=== PATIENT | female | born 1955 | race Caucasian/White ===

== ENCOUNTER 2019-07-11 14:49 | Inpatient (IN) | payer OTHER ==
[~2019-07-11] VITALS: Ht 157.5 cm; Wt 66.5 kg
[2019-07-11 14:49] VITALS: BP 138/72
[~2019-07-11 14:49] MED LIST: ACETAMINOPHEN325 M1 PO; ADULT LOW DOSE81 MG; AMLODIPINE BESY10 MG PO; ANTIVERT25 MG PO; ATIVAN1 MG PO; ATORVASTATIN CA40 MG PO; AZITHROMYCIN 2250 MG PO; BUSPIRONE HCL10 MG PO; CELEBREX 200 M200 M1 PO; CELEXA20 MG PO; CLONAZEPAM; CLONAZEPAM 0.50.5 M1 PO; CLONAZEPAM PO; CLONIDINE0.1 PO; COLACE100 MG; CRESTOR20 MG PO; CYMBALTA30 MG PO; DESYREL50 MG PO; DOCUSATE SODIU100 MG PO; ESCITALOPRAM OX20 MG PO; FIORICET 50-321 EACH PO; FLEXERIL PO; GRALISE600 MG PO; HYDROXYZINE HCL25 M1 PO; LEXAPRO; LIDODERM 5%1 PATC1 TOP; LISINOPRIL10 MG; LISINOPRIL20 MG PO; LISINOPRIL40 MG PO; LORTAB 5 MG/5001 TA1 PO; MEDROLDOSEPACK PO; NEURONTIN 300300 M1 PO; NEURONTIN600 MG PO; NITROGLYCERIN0.3 MG; NITROSTAT0.3 MG SUBLING; NORCO 5-325 TA1 EACH PO; NORCO 7.5-3251 EACH PO; OLANZAPINE10 MG PO; ONDANSETRON HCL4 M2 PO; PERCOCET 5-3251 EACH PO; PHENERGAN 25 MG25 M1 PO; PLAVIX 75 MG TA75 MG PO; PREDNISONE 10 M10 M1 PO; PREDNISONE 20 M20 M1 PO; PREDNISONE 20 M20 MG PO; PRINIVIL20 MG PO; PROAIR HFA8.5 GM; PROAIR HFA8.5 GM INH; REMERON15 MG PO; RISPERDAL 1 MG T1 MG; RISPERDAL M-TAB1 MG PO; SEROQUEL XR 20200 MG PO; SKELAXIN 800 M800 M1 PO; SPIRIVA; SPIRIVA INH; TOPROL XL100 MG PO; TOPROL XL50 MG PO; TOVIAZ8 MG PO; TRICOR145 MG PO; TRILEPTAL 300300 MG PO; ULTRAM 50MG TAB50 MG PO; VESICARE PO; VISTARIL 25 MG25 M1 GT; VITAMIN D 5050000 I1 PO; VITAMIN D1000 UNI1 PO; WELLBUTRIN SR150 MG PO; WELLBUTRIN XL300 M1; XANAX 0.5 MG0.5 MG PO; ZOFRAN ODT4 MG PO; ZOFRAN4 MG PO; ZPAK PO; starlix
[2019-07-11 15:40] LABS: ABSOLUTE NEUTROPHILS 4.8 thou/uL (1.4-8.2); BASOPHILS 0.9 % (0.0-2.0); EOSINOPHILS 0.3 % (0.0-3.0); HEMATOCRIT 46.3 % (37.0-47.0); HEMOGLOBIN 15.9 gm/dL (12.0-15.0); LYMPHOCYTES 29.9 % (24.0-44.0); MCH 32.9 pg (26.0-34.0); MCHC 34.3 g/dL (28.0-37.0); MCV 95.9 fL (80.0-100.0); MONOCYTES 7.5 % (1.0-8.0); PLATELET COUNT 226 thou/uL (150-400); POLYS 61.4 % (36.0-66.0); RBC 4.83 mil/uL (4.20-5.00); RDW 14.9 % (10.5-14.5); WBC 7.9 thou/uL (4.0-11.0)
[2019-07-11 15:48] LABS: ANION GAP 7 mmol/L (7-16); BUN 9 mg/dL (7-18); CALCIUM 9.1 mg/dL (8.5-10.1); CHLORIDE 94 mmol/L (98-107); CO2 28 mmol/L (21-32); GLUCOSE 64 mg/dL (74-106); SODIUM 129 mmol/L (136-145)
[2019-07-11 15:52] LABS: SGOT 12 U/L (15-37); SGPT 6 U/L (30-65); TOTAL BILIRUBIN 0.3 mg/dL (<0.1-1.0); TOTAL PROTEIN 6.4 g/dL (6.4-8.2)
[2019-07-11 15:52] LABS: URINE BILIRUBIN NEGATIVE (Negative); URINE BLOOD NEGATIVE (Negative); URINE CLARITY CLEAR; URINE COLOR YELLOW; URINE GLUCOSE-RANDOM* NEGATIVE (Negative); URINE KETONES NEGATIVE (Negative); URINE LEUKOCYTES NEGATIVE (Negative); URINE NITRITE NEGATIVE (Negative); URINE PROTEIN (DIPSTICK) NEGATIVE (Negative); URINE SPECIFIC GRAVITY <= 1.005 (1.005-1.035)
[2019-07-11 16:00] LABS: AMP/METHAMP Negative (Negative); BARBITURATES Negative (Negative); BENZODIAZEPINES Negative (Negative); COCAINE Negative (Negative); METHADONE Negative (Negative); OPIATES Negative (Negative); PCP Negative (Negative)
[2019-07-11 18:04] VITALS: BP 117/64
--- NOTE | 2019-07-11 18:04 | NUR ---
ATTEMPTED TO CALL REPORT TO RECEIVING RN. WAS TOLD RECEIVING RN WILL CALL BACK AT EARLIEST CONVEINENCE.
[2019-07-11 18:21] VITALS: BP 130/82
[2019-07-11 23:03] VITALS: BP 122/72
--- NOTE | 2019-07-12 00:12 | NUR ---
The pt. arrived to the unit at 1730 after being in the ER, for evaluation of depression. She reports stressors in life, she had a recent move and ill whom she lives with. She lives in [facility] in [place], said her two sons were "kicked out" and her daughter lives in [facility]. She uses [facility] in [place], . A call was made to [facility] at 1930 when received report from day nurse to get a current medication list but they were closed. Dr. Piña was called for admission orders and ordered Remeron 15 mg. po for HS. Her VS were of=275/72, p=60, r=17, T98.4 F, oxy 92% room air. She denied any thoughts to harmself when assessed and said she has had alot of stressors with ill and feels safe here with no thoughts of hurting herself. She was A/O x4, no c.o. pain voiced, bowel movement 10-18-19. She has upper dentures only, said she can chew regular meats cut up. She requested to have available breathing treatments as needed and those ordered. She made a phone call to her , watched some television, had a flat affect, made her needs known, and ambulated with a roller walker on the day mejia, says she sometimes needs one but not all the time. She is sleeping soundly tonite.
[2019-07-12 09:12] VITALS: BP 134/80
[2019-07-12 10:50] LABS: CALCIUM 9.3 mg/dL (8.5-10.1); POTASSIUM 4.1 mmol/L (3.5-5.1)
[2019-07-12 11:01] VITALS: BP 134/80
--- NOTE | 2019-07-12 11:30 | NUR ---
0705 Report received from overnight shift, patient ate breakfast took meds that was ordered. I had to call outside pharmacy [facility] for medication list. List given to medical doctor to order additional medication. Patient is a little out of breath ask for inhaler. Patient is a smoker and lives in a hotel with who is sick. Patient calm cooperative, Flu Vaccine given.
--- NOTE | 2019-07-12 16:09 | NUR ---
SW met with pt for 1:1 and she described a loving and supportive marriage with her of 30 plus years. they are both disabled and have lived in the [facility] for 4 years. She is currently receiving psych services with [facility] ( formerly [facility]) . She would like to start therapy and get some case management services to help with housing and transportation. She is seeing her psychiatrist in July. Rosaura will provide a cab voucher to get her home.
[2019-07-12 20:00] VITALS: BP 129/89
--- NOTE | 2019-07-13 00:42 | NUR ---
PATIENT WAS UP IN DINING ROOM TONIGHT WATCHING TV. SHE HAD HS SNACK AND TOOK HER HS PILLS WITHOUT DIFFICULTY. PATIENT HAS BEEN CALM. NO SI/HI. DR AMAYA CAME UP AND WENT OVER PATIENT'S MED LIST FROM HER PHARMACY. PATIENT DID NOT WANT ALBUTEROL TX'S D/T SHE GETS THE SHAKES. PATIENT WAS ALSO ON 2 OR 3 INHALERS THAT WE DO NOT CARRY IN THAT FORM. PATIENT DID AGREE TO RT'S QID WHICH INCLUDE ALL THE SAME MEDICINES SHE HAD RECEIVED FROM HER INHALERS. PATIENT HAD EXPIRATORY WHEEZES AND THIS CLEARED WITH RT. 02 SAT 95%. PATIENT HAS BEEN COOPERATIVE AND DENIES PAIN. PATIENT SLEEPING IN BED AT THIS TIME. SHE WAS JUST UP TO BATHROOM TO VOID. BED ALARM ON AND BED IN LOW POSITION.
[2019-07-13 06:37] LABS: CREATININE 1.1 mg/dL (0.6-1.0); POTASSIUM 4.3 mmol/L (3.5-5.1)
[2019-07-13 10:39] VITALS: BP 114/81
--- NOTE | 2019-07-13 10:47 | NUR ---
0701 Report received from overnight shift, Patient ate breakfast and took medication without incidence. Patient received a breathing treatment from respiratory department. She states it helped her tremendously. Patient is friendly with peers. Patient cooperative and calm.
[2019-07-13 12:50] VITALS: BP 144/81
[2019-07-13 19:55] VITALS: BP 101/67
[2019-07-14 00:50] VITALS: BP 101/67
--- NOTE | 2019-07-14 08:54 | EKG ---
[place] [address] [facility] [place] [address] ELECTROCARDIOGRAM REPORT Name: LATOYA PERALTA Room #: 520A-A ADM IN M.R.#: [id number] Admission: 07/11/19 Attend Phys: Isak Candelario DO Discharge: Date of : 57 Report #: [id number] THIS REPORT FOR: //name// [facility] ED Test Date: 2019-07-11 Test Time: 15:08:58 Pat Name: LATOYA PERALTA Department: Room: 520A Gender: F Telecommunications Officer: GLORIA : 1955 Requested By: Ema Moffett Order Number: [id number] MD: Hermelindo Harrison Measurements Intervals [place] Rate: 55 P: 26 MI: 147 QRS: 121 QRSD: 87 T: 41 QT: 447 QTc: 428 Interpretive Statements Sinus rhythm Left posterior fascicular block Low voltage, extremity leads Abnormal R-wave progression, late transition Compared to ECG 09/13/2015 21:37:32 T-wave abnormality no longer present Electronically Signed On 07-14-2019 8:54:39 CDT by Hermelindo Harrison [email or web address] <ELECTRONICALLY SIGNED> By: Hermelindo Harrison MD, FAC 07/14/19 0854 1508 1508 Hermelindo Harrison MD, [facility] /EPI
--- NOTE | 2019-07-14 09:17 | EKG ---
[place] [address] [employer] [place] [address] ELECTROCARDIOGRAM REPORT Name: LATOYA PERALTA Room #: 520A-A ADM IN M.R.#: [id number] Admission: 07/11/19 Attend Phys: Isak Candelario DO Discharge: Date of : 57 Report #: [id number] THIS REPORT FOR: //name// [facility] Test Date: 2019-07-13 Test Time: 09:03:09 Pat Name: LATOYA PERALTA Department: Room: 520A A Gender: F Storage Administrator: Kim ESCALONA : 1955 Requested By: Sobeida Durant Order Number: [id number] MD: Hermelindo Harrison Measurements Intervals [place] Rate: 127 P: ID: QRS: 127 QRSD: 98 T: 59 QT: 385 QTc: 560 Interpretive Statements Marked baseline artifact Sinus rhythm Abnormal R-wave progression, late transition Compared to ECG 09/13/2015 21:37:32 No gross differences Electronically Signed On 07-14-2019 9:17:21 CDT by Hermelindo Harrison [email or web address] <ELECTRONICALLY SIGNED> By: Hermelindo Harrison MD, [facility] 07/14/19916 2 2 Hermelindo Harrison MD, [facility] /EPI
[2019-07-14 09:57] VITALS: BP 122/68
--- NOTE | 2019-07-14 20:06 | NUR ---
RECEIVED REPORT FROM DAY SHIFT NURSE AND ASSUMED CARE @ 19:15 ON 07/14/19. SITTING ON COUCH IN DAY ROOM WATCHING TV. COOPERATIVE WITH ASSESSMENT. A&OX4. DENIED SI AND HI. DENIES AUDIO HALLUCINATION AND VISUAL HALLUCINATIONS. REPORTS HAS BACK PAIN AND WISHES TO HAVE PRN PAIN MEDS.
[2019-07-14 20:14] VITALS: BP 115/67
[2019-07-14 23:27] VITALS: BP 115/67
[2019-07-15 09:08] VITALS: BP 114/77
[2019-07-15 10:49] LABS: CALCIUM 9.1 mg/dL (8.5-10.1); POTASSIUM 4.4 mmol/L (3.5-5.1)
[2019-07-15 14:54] VITALS: BP 114/77
--- NOTE | 2019-07-15 15:18 | NUR ---
ASSUMED CARE THIS MORNING AT 0700. PT. UP C/O SHORTNESS OF AIR. LUNGS HAVE CRACKLES IN THE BASES. SHE STATES SHE DOES NOT FELL WELL TODAY. DR. AMAYA HERE AND SPOKE WITH PT. RT. CAME TO DO TREATMENT. HER O2 WAS 89 PRE TREATMENT LAND [address] NOYOLA NOTIFIED OF PT. NOT FEELING WELL AND LUNGS HAVING CRACKLES. CXR ORDERED. THIS SHOWED SOME INFILTRATES AND A QUESTIONABLE AREA. A CT SCAN WAS THEN ORDERED. PT. COMPLIANT WITH BOTH. SHE ATE MEALS ON THE UNIT. SHE IS ALERT AND ORIENTED TIMES 4. WAS ON THE UNIT FOR GROUPS AND PARTICIPATED. NO S/S SI/HI OR AVH NOTED THIS SHIFT. DR. AMAYA CAME BACK TO THE UNIT AND CHANGED SOME ORDERS ON THE PT. THIS AFTERNOON.
[2019-07-15 16:30] LABS: BE(vivo) 2.8 mmol/L (-2 to +3); HCO3 29.8 mmol/L (22.0-26.0); PO2 45.6 mmHg (80.0-100.0); pH 7.351 (7.360-7.450); sO2 78.7 % (92.0-98.0)
--- NOTE | 2019-07-15 20:23 | NUR ---
TRANSFERRED TO 3w [facility] NURSING FLOOR TO RM 357. TRANSFERRED WITH BELONGINGS, CLOTHING AND D/C REPORTS.
[2019-07-16] MEDS ORDERED: ERGOCALCIF50000 UNIT PO (00:45)
--- NOTE | 2019-07-19 22:42 | D ---
[facility] [place] [address] DISCHARGE SUMMARY Name: LATOYA PERALTA JUSTINO Room #: 520A-A [facility] IN M.R.#: [id number] Admission: 07/11/19 Attend Phys: Isak Candelario DO Discharge: 07/15/19 Date of : 57 Report #: [id number] THIS REPORT FOR: //name// CC: Isak Candelario Deepika Dunreith DATE OF SERVICE: 07/15/2019 ATTENDING PHYSICIAN: Isak Candelario DO PUBLIC AFFAIRS SPECIALIST: Sobeida Durant MD DISCHARGE DIAGNOSES: Depression, suicidal ideation, co-occurring illnesses, chronic obstructive pulmonary disease exacerbation, pneumonia, possible tumor at the moment, hypoglycemia. DISCHARGE DISPOSITION: She is being discharged to the medical floor at [facility]. Diet and medications will be per the medical team. Special note discharge was done emergently given the arterial blood gas showing pO2 room air of 45 with the patient being symptomatic, lethargic, and inability to walk today. REASON FOR ADMISSION: Brought to the ED via EMS for evaluation of depression, long history of depression worsening 1 month ago. HOSPITAL COURSE: The patient was continued on several psych meds including mirtazapine 15 mg at bedtime, Depakote ER 1000 mg at bedtime, buspirone 5 mg t.i.d. On the day of discharge, the patient had suicidal ideation, planned to overdose on her pills. Again, she had to be emergently discharged. PHYSICAL EXAMINATION: VITAL SIGNS: Temperature 97.8, pulse 76, respirations 20, BP 106/71, O2 sat 92% on 2 liters. MUSCULOSKELETAL: She was not ambulatory this afternoon, wheelchair bound. MENTAL STATUS EXAMINATION: This is a well-developed, ill-appearing female, feeling weak with diffuse wheezes on auscultation. Attention limited. Concentration limited. Speech is normal rate, low volume. Thought process is linear and goal directed. Thought content, relative poverty of thought. Psychomotor retardation and significant agitation. Attention limited. Concentration limited. Memory not formally tested. Insight limited. Judgment impaired. Fund of knowledge well below average. [facility] [address] [place] [address] DISCHARGE SUMMARY Name: LATOYA PERALTA JUSTINO Room #: 520A-A [facility] IN M.R.#: [id number] Admission: 07/11/19 Attend Phys: Isak Candelario DO Discharge: 07/15/19 Date of : 57 Report #: [id number] PROGNOSIS: For this patient is guarded. We will be happy to follow her in psychiatric consultation while she is on the medical floor. <ELECTRONICALLY SIGNED> By: Isak Candelario DO 07/19/19 2242 0119 0317 Isak Candelario DO /nt
== END 2019-07-15 20:25 | disposition short-term general hospital (02) | DRG 885 ==
LOC: ER 14:49 → SBH 18:01
PROVIDERS: Internal Medicine; Nurse Practitioner Family; Physician Assistant; ADMIT Psychiatry & Neurology Psychiatry
DX: F33.2 Major depressive disorder, recurrent severe without psychotic features (principal); J18.9 Pneumonia, unspecified organism; R45.851 Suicidal ideations; I10 Essential (primary) hypertension; J43.9 Emphysema, unspecified; E78.5 Hyperlipidemia, unspecified; F17.210 Nicotine dependence, cigarettes, uncomplicated; E11.649 Type 2 diabetes mellitus with hypoglycemia without coma; I25.10 Atherosclerotic heart disease of native coronary artery without angina pectoris; E11.42 Type 2 diabetes mellitus with diabetic polyneuropathy; M48.00 Spinal stenosis, site unspecified; F12.90 Cannabis use, unspecified, uncomplicated; F41.9 Anxiety disorder, unspecified; Z23 Encounter for immunization; Z99.81 Dependence on supplemental oxygen; Z79.84 Long term (current) use of oral hypoglycemic drugs; I25.2 Old myocardial infarction; Z95.5 Presence of coronary angioplasty implant and graft; Z88.6 Allergy status to analgesic agent; Z88.8 Allergy status to other drugs, medicaments and biological substances
CPT/HCPCS: 10880

== ENCOUNTER 2019-07-15 18:43 | Inpatient (IN) | payer OTHER ==
[~2019-07-15] VITALS: Ht 157.5 cm; Wt 68.2 kg
[2019-07-15 20:05] VITALS: BP 106/71
[2019-07-15 23:42] LABS: ABSOLUTE NEUTROPHILS 8.4 thou/uL (1.4-8.2); BASOPHILS 0.4 % (0.0-2.0); HEMATOCRIT 39.9 % (37.0-47.0); HEMOGLOBIN 13.4 gm/dL (12.0-15.0); LYMPHOCYTES 7.2 % (24.0-44.0); MCH 32.8 pg (26.0-34.0); MCHC 33.6 g/dL (28.0-37.0); MCV 97.5 fL (80.0-100.0); MONOCYTES 3.5 % (1.0-8.0); PLATELET COUNT 193 thou/uL (150-400); POLYS 88.9 % (36.0-66.0); WBC 9.4 thou/uL (4.0-11.0)
[2019-07-15 23:54] LABS: ALBUMIN 2.5 g/dL (3.4-5.0); CALCIUM 8.8 mg/dL (8.5-10.1); CREATININE 1.4 mg/dL (0.6-1.0); MAGNESIUM 1.5 mg/dL (1.8-2.4); POTASSIUM 5.1 mmol/L (3.5-5.1); TOTAL BILIRUBIN 0.1 mg/dL (<0.1-1.0); TOTAL PROTEIN 5.8 g/dL (6.4-8.2)
[2019-07-16 00:14] VITALS: BP 107/61
--- NOTE | 2019-07-16 00:23 | NUR ---
2009 PT ARRIVED ON UNIT 07/15 VIA W/C FROM [facility] IN STABLE CONDITION. ORIENTED TO ROOM. ADMIT IS NOW COMPLETE AND ORDERS CARRIED OUT. PT PLACED ON TELE. PT CONSENTS SIGNED AND ALSO FOR TELE INTERFERENCE. PT ACKNOWLEDGED UNDERSTANDING OF.
[2019-07-16] MEDS ORDERED: ERGOCALCIF50000 UNIT PO (00:45)
[2019-07-16 04:00] VITALS: BP 156/85
[2019-07-16 04:06] VITALS: BP 110/62
[2019-07-16 05:43] LABS: ABSOLUTE NEUTROPHILS 7.2 thou/uL (1.4-8.2); BASOPHILS 0.3 % (0.0-2.0); HEMOGLOBIN 13.7 gm/dL (12.0-15.0); LYMPHOCYTES 8.1 % (24.0-44.0); MCH 32.7 pg (26.0-34.0); MCHC 33.4 g/dL (28.0-37.0); MCV 97.8 fL (80.0-100.0); MONOCYTES 2.1 % (1.0-8.0); PLATELET COUNT 196 thou/uL (150-400); POLYS 89.5 % (36.0-66.0); RDW 15.2 % (10.5-14.5); WBC 8.1 thou/uL (4.0-11.0)
[2019-07-16 06:15] LABS: MAGNESIUM 1.7 mg/dL (1.8-2.4); PHOSPHORUS 4.2 mg/dL (2.5-4.9)
[2019-07-16 07:23] VITALS: BP 112/58
[2019-07-16 16:51] VITALS: BP 112/58
[2019-07-16 20:10] VITALS: BP 96/48
--- NOTE | 2019-07-16 20:20 | NUR ---
Patient reported anxiety and asked for and received medication. After am PRN Duloxetine administration , patient advised she was still feeling anxious. Lorazepam was administered. Later, the patient advised she was feeling calm. She is working towards discharge goals.
[2019-07-17 05:51] VITALS: BP 115/65
[2019-07-17 07:50] VITALS: BP 117/65
--- NOTE | 2019-07-17 10:24 | NUR ---
ASSESSMENT: CM REVIEWED CHART AND MET WITH PATIENT AT THE BEDSIDE. PT WAS ON [facility] DUE TO SI WITH PLANS TO POSSIBLY OVERDOSE ON MEDICATIONS. PTS HAS HAD A SI ATTEMPT IN THE PAST. PT WAS DISCHARGED FROM [facility] AND ADMITTED TO ACUTE CARE DUE TO ACUTE ON CHRONIC RESPIRATORY FAILURE. PT REPORTS SHE IS STILL HAVING THOUGHTS OF HARMING HERSELF AND IS CURRENTLY ON A 1:1. PT REPORTS SHE LIVES IN A [facility] WITH HER AND HAS FOR ABOUT 4 YEARS. PT REPORTS SHE HAS ABOUT 14 STEPS WITH HANDRAILS TO GET INTO HER ROOM. PT REPORTS SHE HAS OXYGEN SET UP THROUGH [facility] AND IS SUPPOSED TO BE ON 2L CONTINUOUSLY BUT STATES SHE IS NOT COMPLIANT WITH IT. PT REPORTS SHE HAS NOT HAD HH IN THE PAST. PT REPORTS SHE FOLLOWS [facility] AT [facility] AND HAS A PHYSCIATRIST THERE. CM DISCUSSED ROLE. PSYCH HAS BEEN CONSULTED. CM WILL CONTINUE TO FOLLOW TO ASSIST NEEDED.
[2019-07-17 13:40] VITALS: BP 120/66
[2019-07-17 16:00] VITALS: BP 117/68
[2019-07-17 19:00] VITALS: BP 120/64
--- NOTE | 2019-07-17 20:19 | NUR ---
pt is A &OX3, but pt is forgetful, pt 's anxiety and deprssion have improved, pt's vs and o2sat are stable, pt denies pain and sob , pt's sitter has d/c at 1755pm.
[2019-07-17 22:29] VITALS: BP 155/59
[2019-07-18 02:55] VITALS: BP 114/61
--- NOTE | 2019-07-18 04:41 | NUR ---
SLEPT MOST OF SHIFT AFTER FAMILY LEFT. PATIENT HAS REMAINS CALM AND COOPERATIVE THIS SHIFT. ASSIST UP TO COMODE WITH 1 ASSIST NEEDED. MAINTAIN SAFE ENVIRONMENT. WORKING ON GOALS AND PLAN OF CARE FOR NOC. PROGRESSING SLOWLY TOWARDS DISCHARGE GOALS. CONTINUE TO ASSES CLOSELY.
[2019-07-18 07:05] VITALS: BP 91/37
[2019-07-18 08:10] VITALS: BP 121/80
[2019-07-18 11:09] VITALS: BP 113/69
[2019-07-18 11:40] LABS: HEMATOCRIT 40.4 % (37.0-47.0); HEMOGLOBIN 13.4 gm/dL (12.0-15.0); MCH 32.6 pg (26.0-34.0); MCHC 33.3 g/dL (28.0-37.0); MCV 98.1 fL (80.0-100.0); RBC 4.12 mil/uL (4.20-5.00); RDW 15.5 % (10.5-14.5); WBC 10.8 thou/uL (4.0-11.0)
[2019-07-18 12:00] LABS: ALBUMIN 2.7 g/dL (3.4-5.0); ANION GAP 1 mmol/L (7-16); BUN 13 mg/dL (7-18); CHLORIDE 102 mmol/L (98-107); CO2 35 mmol/L (21-32); CREATININE 0.7 mg/dL (0.6-1.0); GLUCOSE 108 mg/dL (74-106); POTASSIUM 4.9 mmol/L (3.5-5.1); SGOT 14 U/L (15-37); SGPT 12 U/L (30-65); SODIUM 138 mmol/L (136-145); TOTAL BILIRUBIN 0.1 mg/dL (<0.1-1.0); TOTAL PROTEIN 5.7 g/dL (6.4-8.2)
[2019-07-18 14:25] LABS: HCO3 29.6 mmol/L (22.0-26.0); PO2 VENOUS 34.6 mmHg (35.0-45.0)
[2019-07-18 15:12] VITALS: BP 113/64
--- NOTE | 2019-07-18 15:44 | NUR ---
ON-GOING ASSESSMENT: CM REVIEWED CHART AND MET WITH PATIENT AT THE BEDSIDE. PT SLOWLY PROGRESSING TOWARDS DISCHARGE GOALS. PT WAS TAKEN OFF THE 1:1 AND REPORTS FEELING BETTER. CM DISCUSSED ROLE AND POSSIBLE RECOMMENDATION FOR ACUTE REHAB. PT HAS MEDICAID AND WILL NEED INSURANCE AUTH PRIOR TO GOING TO ACUTE REHAB. 5N CONSULT HAS BEEN PLACED AND AWAITING INPUT. OT SAW PATIENT BUT PT WAS UNABLE TO WORK WITH PT TODAY. NO WEEKEND DISCHARGE ANTICIPATED WILL NEED INSURANCE AUTH PRIOR TO DISCHARGE. CM WILL CONTINUE TO FOLLOW TO ASSIST NEEDED.
--- NOTE | 2019-07-18 15:55 | NUR ---
pt is A&OX3, and pt is cooperative, pt was off 1:1 sitter at 07/17/19 1800pm, pt has medications for anxiety, pt is on o2 3L/MIN/NC, pt's vs and o2sat are stable ,pt has slowly meeting care plan goals.
[2019-07-18 19:30] VITALS: BP 106/76
[2019-07-18 22:38] LABS: CREATININE 0.8 mg/dL (0.6-1.0); MAGNESIUM 1.6 mg/dL (1.8-2.4); PHOSPHORUS 2.6 mg/dL (2.5-4.9); POTASSIUM 4.2 mmol/L (3.5-5.1)
[2019-07-19 03:50] VITALS: BP 130/54
--- NOTE | 2019-07-19 04:48 | NUR ---
SLEPT MOST OF SHIFT. CALLS OUT TO VOID BUT HAS ALREADY BEEN INCONTINENT EACH TIME. PERICARE PRN. ASSIST UP TO COMODE PRN. WORKING ON GOALS AND PLAN OF CARE FOR NOC. HAS REMAINED CALM AND COOPERATIVE WITHOUT ANY MENTION OF SUICIDE THOUGHTS. PROGRESSING SLOWLY TOWARDS DISCHARGE GOALS. CONTINUE TO ASSES.
[2019-07-19 07:17] VITALS: BP 125/77
[2019-07-19] MEDS ORDERED: LEVAQUIN 500 M500 M2 PO (09:44)
[2019-07-19] MEDS ORDERED: RAYOS5 MG PO (09:46)
[2019-07-19 11:27] VITALS: BP 112/65
[2019-07-19 15:02] VITALS: BP 118/70
--- NOTE | 2019-07-19 16:55 | NUR ---
pt is A&O X3, pt is cooperative, pt is contiuning o2 3L/MIN/NC, pt 's vs and o2sat are stable , pt gets up to use BSC with assist, pt denies pain and sob at this time, pt has slowly to meet care plan goals.
[2019-07-19 19:55] VITALS: BP 105/60
--- NOTE | 2019-07-19 22:51 | HC ---
[facility] [address] [place] [address] CONSULTATION Name: LATOYA PERALTA JUSTINO Room #: 357- ADM IN M.R.#: [id number] Admission: 07/15/19 Attend Phys: Panfilo Miles MD Discharge: Date of : 57 Report #: [id number] THIS REPORT FOR: //name// CC: Deepika Miles DATE OF SERVICE: 07/16/2019 PRIMARY ATTENDING PHYSICIAN: Panfilo Miles M.D. PSYCHIATRIC SUPPLY PLANNER: Isak Candelario DO REASON FOR CONSULTATION: The patient being hospitalized on the [facility] and discharged and readmitted to the medical floor. SOURCES OF INFORMATION: Interview with the patient, chart review, discussion with Dr. Miles. HISTORY OF PRESENT ILLNESS: This is a 63-year-old overweight female patient, presents with appearance of acute on chronic respiratory failure with pO2 of 45 on room air, progressive shortness of breath. She is doing fairly well today and maintained on 3 liters of oxygen with pulmonary toilet. I questioned her about her suicidality and mood. She states she feels about the same as yesterday. I discussed with her the goals she has, it sounds like the patient is highly limited to her home. Her is disabled. Neither of them drive and they are reliable on her son named Grover, I called him at #[phone], went to an answering device, I left a message. I had told Dr. Miles that she feels less depressed today. She has not made any suicidal behavior since she has been on the medical floor. MEDICATIONS: Right now; olanzapine 10 mg p.o. at bedtime; mirtazapine, which is Remeron 30 mg p.o. at bedtime; metoprolol succinate 100 mg p.o. at bedtime; methylprednisolone IV b.i.d.. Atorvastatin 40 mg p.o. at bedtime, lorazepam 1 mg q.6 p.r.n. IV push, levofloxacin 100 mL q.48 IV piggyback, ergocalciferol 50,000 international units once a day, duloxetine 80 mg p.o. b.i.d., docusate 100 mg daily p.o., Plavix 75 mg p.o. daily, celecoxib 100 mg p.o. daily, buspirone 5 mg p.o. b.i.d., amlodipine 10 mg p.o. daily, fenofibrate 160 mg p.o. before breakfast, budesonide 0.5 mg b.i.d. inhaled; Xopenex 0.63 mg and it was then discontinued; continue Tylenol 650 mg p.o. q.4 p.r.n.; gabapentin 600 mg 4 times a day; and Nystatin 500,000 international units 4 times a day swish and swallow. Hydroxyzine 50 mg p.o. b.i.d. p.r.n. and we will go ahead and discontinue this from her anxiety regimen. Additional information from H and P done by Hospital Service. PAST MEDICAL HISTORY: Includes hyponatremia, hyperlipidemia, hypertension, diabetes mellitus, peripheral neuropathy, coronary artery disease, status post [address] [address] CONSULTATION Name: LATOYA PERALTA Room #: 357-P ADM IN M.R.#: [id number] Admission: 07/15/19 Attend Phys: Panfilo Miles MD Discharge: Date of : 57 Report #: [id number] myocardial stents and spinal stenosis. PHYSICAL EXAMINATION: MUSCULOSKELETAL: Nonambulatory, recumbent in bed. VITAL SIGNS: Today, temperature 36.1, pulse 74, respirations 18, BP 112/58, O2 sat 92%, looks like that was done without oxygen, pulse ox was read. MENTAL STATUS EXAMINATION: This is a well-developed, fairly nourished female appearing stated age. Attention limited. Concentration limited. Speech slow, normal volume, normal tone. Thought process linear and goal directed thought content. Memory not formally tested. Insight limited. Judgment limited. Mood and affect congruent, restricted, and dysphoric. FORMULATION: A 63-year-old female admitted medically for COPD exacerbation. PLAN: I have discontinued Hydroxyzine given the patient's age and the risk of delirium, I think the benefits will be outweighed. ASSESSMENT: Major depressive disorder, severe. OTHER ISSUES: Acute on chronic hypoxic hypercapnic respiratory failure, chronic obstructive pulmonary disease exacerbation, hyponatremia, depression, suicidal ideation. Plan: Hydroxyzine discontinued. Continue olanzapine and mirtazapine. I did notice she is on duloxetine, so we will leave that be, but the mirtazapine is causing excess sedation. I do not think I will make further medication changes today. Reevaluate her tomorrow. I feel that it is a good point she is not suicidal; therefore, does not require further inpatient admission. Time spent on interview, review of records, coordination of care ____ discussion with nurses about 60 minutes. <ELECTRONICALLY SIGNED> By: Isak Candelario DO 07/19/19 2251 1717 0119 Isak Candelario, DO /nt
[2019-07-20 04:00] VITALS: BP 103/62
--- NOTE | 2019-07-20 04:52 | NUR ---
PT MAKING SLOW PROGRESS TOWARDS GOALS. DROWSY AND SLEEPING MUCH OF THE NIGHT. LUNGS DIMINISHED AND FAINTLY WHEEZY THROUGHOUT. DENIED ANY SOA WHILE AT REST. CONTINUE TO MONITOR.
[2019-07-20 05:02] LABS: CALCIUM 8.7 mg/dL (8.5-10.1); CREATININE 1.1 mg/dL (0.6-1.0); MAGNESIUM 1.7 mg/dL (1.8-2.4); PHOSPHORUS 3.5 mg/dL (2.5-4.9); POTASSIUM 3.9 mmol/L (3.5-5.1)
[2019-07-20 08:15] VITALS: BP 117/72
[2019-07-20 17:30] VITALS: BP 122/78
--- NOTE | 2019-07-20 18:02 | NUR ---
ASSUMED PATIENT CARE AT 0700. A/0 X4. ANXIOUS. TOLERATED ON 3L/NC. UP STANDBY TO BSC. PROGRESSING TOWARDS POC GOALS.
[2019-07-20 19:31] VITALS: BP 102/65
[2019-07-20 22:33] LABS: CALCIUM 8.4 mg/dL (8.5-10.1); CREATININE 1.3 mg/dL (0.6-1.0); MAGNESIUM 1.6 mg/dL (1.8-2.4); PHOSPHORUS 3.9 mg/dL (2.5-4.9); POTASSIUM 3.9 mmol/L (3.5-5.1)
[2019-07-21 03:25] VITALS: BP 103/64
--- NOTE | 2019-07-21 04:03 | NUR ---
PATIENT IS ALERT AND ORIENTED. PATIENT IS PENDING DISCHARGE TO [facility] TODAY. PATIENT IS ON 3LNC. PATIENT IS SUPPOSE TO BE 2LNC AT HOME. PATIENT DENIES PAIN. PATIENT IS SINUS JYOTSNA ON TELE. PAITENTS LBM WAS THE . PAITENT IS RESTING COMFORTABLY IN BED. WCM. DR. SHANNAN SOLO ON [address] [place] [address] STATED TO DAY SHFT NURSE PATIENT DOES NOT NEED SITTER DUE TO CHRONIC NATURE OF SI. PATIENT IS MONITORED FREQUENTLY. AND PATIENT IS TRANSFERING BACK TO [address] [place] [address] TODAY. PATIENT IS PROGRESSING TO GOALS. PATIENT IS MEDICATED APPROPIATELY.
[2019-07-21 07:23] VITALS: BP 109/67
[2019-07-21 08:25] VITALS: BP 109/67
[2019-07-21 09:54] LABS: ALBUMIN 2.8 g/dL (3.4-5.0); CALCIUM 9.1 mg/dL (8.5-10.1); CREATININE 1.2 mg/dL (0.6-1.0); MAGNESIUM 1.8 mg/dL (1.8-2.4); POTASSIUM 4.3 mmol/L (3.5-5.1); TOTAL BILIRUBIN 0.2 mg/dL (<0.1-1.0); TOTAL PROTEIN 5.6 g/dL (6.4-8.2)
--- NOTE | 2019-07-21 09:56 | NUR ---
on-GOING ASSESSMENT: CM REVIEWED CHART AND MET WITH PATIENT AT THE BEDSIDE. PT STATES SHE IS HOPEFUL TO GO TO ACUTE REHAB. CM SPOKE WITH Jose Juan NUNN WHO STATES THEY DO NOT HAVE A BED OPEN. CM DISCUSSED OTHER ACUTE REHAB OPTIONS WITH PATIENT AND SHE WANTED A REFERRAL SENT TO [facility]. CM FAXED REFERRAL AND AWAITING INPUT FROM THEM AT THIS TIME.
--- NOTE | 2019-07-21 11:20 | 2DMMODE ---
[facility] [address] [place] [address] 2 D/M-MODE ECHOCARDIOGRAM Name: LATOYA PERALTA Room #: 357-P ADM IN M.R.#: [id number] Admission: 07/15/19 Attend Phys: Panfilo Miles Discharge: Date of : 57 Report #: [id number] THIS REPORT FOR: //name// APPROVED REPORT Study performed: 07/21/2019 10:07:04 EXAM: Comprehensive 2D, Doppler, and color-flow Echocardiogram Patient Location: Echo lab Room #: 357 Status: routine BSA: 1.69 HR: 82 bpm BP: 109/67 mmHg Rhythm: NSR Other Information Study Quality: Good Indications COPD exacerbation. Hx: OR, stents, COPD, HTN, HLP, DM. 2D Dimensions RVDd: 27.79 mm IVSd: 13.19 (7-11mm) LVOT Diam: 20.32 (18-24mm) LVDd: 35.03 mm PWd: 11.15 (7-11mm) Ascending Ao: 28.35 (22-36mm) LVDs: 20.93 (25-40mm) Aortic Root: 29.71 mm Volumes Left Atrial Volume (Systole) Single Plane 4CH: 39.55 mL Single Plane 2CH: 38.07 mL LA ESV Index: 24.00 mL/m2 Aortic Valve AoV Peak Antonio.: 1.68 m/s AO Peak Gr.: 11.30 mmHg LVOT Max P.66 mmHg LVOT Max V: 1.29 m/s AKANKSHA Vmax: 2.49 cm2 Mitral Valve E/A Ratio: 0.7 MV Decel. Time: 304.09 ms MV E Max Antonio.: 0.69 m/s [facility] [address] [place] [address] 2 D/M-MODE ECHOCARDIOGRAM Name: FABIANLATOYA JUSTINO Room #: 357-P [facility] IN [facility].#: [id number] Admission: 07/15/19 Attend Phys: Panfilo Miles Discharge: Date of : 57 Report #: [id number] MV A Antonio.: 1.01 m/s MV PHT: 88.18 ms IVRT: 83.04 ms Pulmonary Valve PV Peak Antonio.: 1.17 m/s PV Peak Gr.: 5.52 mmHg Pulmonary Vein P Vein S: 0.73 m/s P Vein D: 0.43 m/s P Vein S/D Ratio: 1.70 Tricuspid Valve TR Peak Antonio.: 2.19 m/s RAP Estimate: 5.00 mmHg TR Peak Gr.: 19.23 mmHg PA Pressure: 24.00 mmHg Left Ventricle The left ventricle is normal size. There is normal LV segmental wall motion. Mild concentric left ventricular hypertrophy. Left ventricular systolic function is normal. LVEF is 60-65%. Mild diastolic dysfunction is present (impaired relaxation pattern). Right Ventricle The right ventricle is normal size. The right ventricular systolic function is normal. Atria The left atrium size is normal. The right atrium size is normal. Aortic Valve The aortic valve is normal in structure; mildly calcified. No aortic regurgitation is present. There is no aortic valvular stenosis. Mitral Valve The mitral valve is normal in structure. Trace mitral regurgitation. Tricuspid Valve The tricuspid valve is normal in structure. Trace tricuspid regurgitation. Estimated PAP is 25mmHg. Pulmonic Valve [facility] [place] [address] 2 D/M-MODE ECHOCARDIOGRAM Name: LATOYA PERALTA Room #: 357-P [facility] IN M.R.#: [id number] Admission: 07/15/19 Attend Phys: Panfilo Miles Discharge: Date of : 57 Report #: [id number] The pulmonary valve is normal in structure. Trace pulmonic regurgitation. Great Vessels The aortic root is normal in size. The ascending aorta is normal in size. IVC is normal in size and collapses >50% with inspiration. Pericardium There is no pericardial effusion. <Conclusion> The left ventricle is normal size. LVEF is 60-65%. The aortic valve is normal in structure; mildly calcified. The mitral valve is normal in structure. Trace mitral regurgitation. The tricuspid valve is normal in structure. Trace tricuspid regurgitation. Estimated PAP is 25mmHg. The pulmonary valve is normal in structure. Trace pulmonic regurgitation. There is no pericardial effusion. <ELECTRONICALLY SIGNED> By: Jeff Gonzalez MD 07/21/19 1119 18 18 Jeff Gonzalez MD /INF
[2019-07-21 12:05] LABS: HCO3 33.4 mmol/L (22.0-26.0); PCO2 VENOUS 48.7 mmHg (41.0-51.0); PO2 VENOUS 46.4 mmHg (35.0-45.0)
--- NOTE | 2019-07-21 16:02 | NUR ---
Assumed care approx. 0700 this AM. Patient anxious most of shift. Lorazepam PRN PO tablet administered twice per orders. Patient nervous about transfer to new facility for rehab. Case management at bedside more than once today along with patient's sons for support. Discharge orders obtained. Report called to nurse at [facility]. Patient left via wheelchair van approx. 1600. IV and tele removed. Chart copy given to patient's laundry route driver. All belongings noted to be with patient.
== END 2019-07-21 16:06 | DRG 193 ==
LOC: 3W 18:43
PROVIDERS: Internal Medicine; ADMIT Internal Medicine
DX: J18.9 Pneumonia, unspecified organism (principal); J96.21 Acute and chronic respiratory failure with hypoxia; J96.22 Acute and chronic respiratory failure with hypercapnia; J44.1 Chronic obstructive pulmonary disease with (acute) exacerbation; E87.1 Hypo-osmolality and hyponatremia; R45.851 Suicidal ideations; N17.9 Acute kidney failure, unspecified; J44.0 Chronic obstructive pulmonary disease with (acute) lower respiratory infection; F32.9 Major depressive disorder, single episode, unspecified; I10 Essential (primary) hypertension; E78.5 Hyperlipidemia, unspecified; E11.42 Type 2 diabetes mellitus with diabetic polyneuropathy; I25.10 Atherosclerotic heart disease of native coronary artery without angina pectoris; M48.00 Spinal stenosis, site unspecified; E11.65 Type 2 diabetes mellitus with hyperglycemia; F41.1 Generalized anxiety disorder; R25.1 Tremor, unspecified; Z95.5 Presence of coronary angioplasty implant and graft; Z71.6 Tobacco abuse counseling; I25.2 Old myocardial infarction; Z79.899 Other long term (current) drug therapy; Z23 Encounter for immunization
CPT/HCPCS: 10879